=== PATIENT | female | born 1990 | race African-American/Black ===

== ENCOUNTER 2024-04-11 11:29 | Emergency (ER) | payer MEDICAID ==
[~2024-04-11] VITALS: Ht 170.2 cm; Wt 105.5 kg
[2024-04-11 11:35] VITALS: BP 90/55; PULSE 67; RESP 18; TEMP 98.5; O2SAT 98
== END 2024-04-11 13:58 | disposition left against medical advice (07) ==
LOC: EMS 11:32
DX: M79.644 Pain in right finger(s) (principal); Z53.21 Procedure and treatment not carried out due to patient leaving prior to being seen by health care provider
CPT/HCPCS: 73130-TC